=== PATIENT | female | born 1955 | race Caucasian/White ===

== ENCOUNTER 2018-08-10 14:51 | Emergency (ER) | payer MEDICARE, OTHER ==
[~2018-08-10] VITALS: Ht 152.4 cm; Wt 81.6 kg
[2018-08-10] MEDS ORDERED: LOSA100T31 PO (15:01)
[2018-08-10] MEDS ORDERED: AMLO10TA7 PO (15:01)
[2018-08-10] MEDS ORDERED: ASPI81TA31 PO (15:01)
[2018-08-10] MEDS ORDERED: ATEN25TA PO (15:01)
[2018-08-10] MEDS ORDERED: MORPHINE SULFATE 4 MG/1 ML DISP.SYRIN IV ONE (15:15)
[2018-08-10 15:16] LABS: BASOPHILS % (AUTO) 0.7 % (0.0-2.0); EOSINOPHILS % (AUTO) 0.6 % (0.0-7.0); HEMATOCRIT 39.7 % (31.2-41.9); HEMOGLOBIN 13.6 g/dL (10.9-14.3); LYMPHOCYTES # (AUTO) 2.5 K/uL (20.0-40.0); LYMPHOCYTES % (AUTO) 36.9 % (20.5-51.5); MEAN CORPUSCULAR HEMOGLOBIN 30.5 uug (24.7-32.8); MEAN CORPUSCULAR HGB CONC 34 g/dL (32.3-35.6); MEAN CORPUSCULAR VOLUME 88.9 fL (75.5-95.3); MONOCYTES # (AUTO) 0.4 K/uL (2.0-10.0); MONOCYTES % (AUTO) 6.5 % (0.0-11.0); NEUTROPHILS # (AUTO) 3.7 K/uL (1.8-8.9); NEUTROPHILS % (AUTO) 55.3 % (38.5-71.5); PLATELET COUNT (AUTO) 226 K/uL (179-408); RED BLOOD CELL COUNT(AUTO) 4.47 MIL/uL (3.63-4.92); WHITE BLOOD COUNT (AUTO) 6.7 K/uL (3.8-11.8)
[2018-08-10] MEDS ORDERED: MORPHINE SULFATE 4 MG/1 ML DISP.SYRIN ONE (15:22)
[2018-08-10 15:25] LABS: CREATININE 0.8 mg/dL (0.6-1.3); POTASSIUM 3.7 mmol/L (3.5-5.1)
[2018-08-10] MEDS ORDERED: IOHEXOL 300MG/ML 100 ML INFUS..BTL ONE (16:00)
[2018-08-10] MEDS ORDERED: IV NORMAL SALINE 250 ML IV ONE ×2 (16:00→16:03)
[2018-08-10] MEDS ORDERED: NORMAL SALINE FLUSH 10 ML DISP.SYRIN ONE (16:00)
[2018-08-10] MEDS ORDERED: SWABABLE VALVE TRANSFER SET EA MC ONE (16:00)
--- NOTE | 2018-08-10 17:36 | NUR ---
IV removed. Catheter intact and site benign. Pressure and 4x4 gauze applied to site. No bleeding noted. Patient discharged to home in stable conditon. Written and verbal after care instructions given to patient and family. Patient and family verbalized understanding of instructions. Patient & family want NORCO prescription, Dr Guillermo notified. No [facility]CO prescription per MD. PATIENT IS PAIN FREE AT THIS TIME.
== END 2018-08-10 17:39 | disposition home or self-care (01) ==
LOC: ER 14:51
DX: R51 Headache (principal); Z79.82 Long term (current) use of aspirin; Z79.899 Other long term (current) drug therapy; Z86.73 Personal history of transient ischemic attack (TIA), and cerebral infarction without residual deficits
CPT/HCPCS: 36415; 70470; 70480; 80048; 85025; 85651; 96374; 99284; J2270; Q9967; A4663; J3490; J7050

== ENCOUNTER 2021-01-23 22:40 | Emergency (ER) | payer MEDICARE, OTHER ==
[~2021-01-23] VITALS: Ht 144.8 cm; Wt 80.7 kg
[~2021-01-23 22:40] MED LIST: AMLO10TA59 PO; ASPI81TA31 PO; ATEN25TA PO; LOSA100T31 PO
[2021-01-23] MEDS ORDERED: MORPHINE SULFATE 2 MG/1 ML DISP.SYRIN IM ONE (23:15)
[2021-01-23] MEDS ORDERED: ONDANSETRON ODT 4 MG TAB.RAPDIS SL ONE (23:30)
[2021-01-23] MEDS ORDERED: NALO4SPR INH (23:33)
[2021-01-23] MEDS ORDERED: NAPR500T6 PO (23:33)
[2021-01-23] MEDS ORDERED: HYDR-4209 PO (23:33)
[2021-01-23] MEDS ORDERED: MORPHINE SULFATE 2 MG/1 ML DISP.SYRIN ONE (23:37)
[2021-01-23] MEDS ORDERED: ONDANSETRON ODT 4 MG TAB.RAPDIS ONE (23:37)
--- NOTE | 2021-01-23 23:48 | NUR ---
Xray at bedside.
--- NOTE | 2021-01-24 00:54 | NUR ---
Patient discharged to home in stable condition. Written and verbal after care instructions given. Patient verbalizes understanding of instructions. Stressed follow up or return to ER for worsening s/s. Patient demonstrates ability to ambulate with use of crutches, V/S stable, advised to not drive, and left the ER with all belongings.
[2021-01-24 00:56] VITALS: BP 132/56
== END 2021-01-24 00:56 | disposition home or self-care (01) ==
LOC: ER 22:42
DX: S80.01XA Contusion of right knee, initial encounter (principal); T14.8XXA Other injury of unspecified body region, initial encounter; W01.0XXA Fall on same level from slipping, tripping and stumbling without subsequent striking against object, initial encounter; Y92.89 Other specified places as the place of occurrence of the external cause; I10 Essential (primary) hypertension; Z90.49 Acquired absence of other specified parts of digestive tract; Z86.73 Personal history of transient ischemic attack (TIA), and cerebral infarction without residual deficits
CPT/HCPCS: 29505; 73502; 73551; 73562; 96372; 99284; J2270; Q0162